=== PATIENT | female | born 2000 | race Caucasian/White ===

== ENCOUNTER 2024-02-24 12:15 | Emergency (ER) | payer MEDICAID ==
[~2024-02-24] VITALS: Ht 167.6 cm; Wt 84.4 kg
[2024-02-24 12:25] VITALS: BP 117/70; PULSE 73; RESP 20; TEMP 98.1; O2SAT 97
[2024-02-24] MEDS: ACETAMINOPHEN EXTRA STRENGTH 500 MG TAB PO ONE (14:48)
[2024-02-24] MEDS ORDERED: IBUP-2213 PO (15:04)
[2024-02-24] MEDS ORDERED: ATA25 PO (15:04)
[2024-02-24 15:23] VITALS: BP 121/72; PULSE 77; RESP 16; TEMP 98.1; O2SAT 99
== END 2024-02-24 15:23 | disposition home or self-care (01) ==
LOC: MED 12:15
DX: R07.89 Other chest pain (principal); Z79.899 Other long term (current) drug therapy
CPT/HCPCS: 93005; 99283